=== PATIENT | male | born 1990 | race Caucasian/White ===

== ENCOUNTER 2017-03-12 15:34 | Emergency (ER) | payer OTHER ==
[~2017-03-12] VITALS: Ht 162.6 cm; Wt 59.0 kg
[2017-03-12 15:41] VITALS: BP 130/75
--- NOTE | 2017-03-12 17:34 | NUR ---
splint applied. pt is medically cleared for booking. d/c to pd in stable condition.
== END 2017-03-12 17:35 | disposition home or self-care (01) ==
LOC: ER 15:35
DX: S62.365A Nondisplaced fracture of neck of fourth metacarpal bone, left hand, initial encounter for closed fracture (principal); L60.0 Ingrowing nail; F12.90 Cannabis use, unspecified, uncomplicated; Z59.0 Homelessness; Y04.0XXA Assault by unarmed brawl or fight, initial encounter; Y93.89 Activity, other specified; Y92.89 Other specified places as the place of occurrence of the external cause; Y99.8 Other external cause status
CPT/HCPCS: 29125; 73130; 99284; A4606; Z7610